=== PATIENT | male | born 1935 | race Caucasian/White ===

== ENCOUNTER 2018-02-08 20:09 | Emergency (ER) | payer BC, MEDICARE ==
[2018-02-08] MEDS ORDERED: Lidocaine 1% w/Epinephrine 1:100K 20 ML VIAL ONE (20:59)
== END 2018-02-08 22:36 | disposition home or self-care (01) ==
LOC: ERS 20:09
DX: S51.812A Laceration without foreign body of left forearm, initial encounter (principal); S61.411A Laceration without foreign body of right hand, initial encounter; J44.9 Chronic obstructive pulmonary disease, unspecified; Z87.891 Personal history of nicotine dependence; W19.XXXA Unspecified fall, initial encounter
CPT/HCPCS: 12002; J2001

== ENCOUNTER 2018-02-09 18:41 | Emergency (ER) | payer MEDICARE | END 2018-02-09 20:35 | disposition home or self-care (01) | LOC: ERS 18:41 | DX: S51.811A Laceration without foreign body of right forearm, initial encounter (principal); S51.012A Laceration without foreign body of left elbow, initial encounter; Z71.6 Tobacco abuse counseling; I25.10 Atherosclerotic heart disease of native coronary artery without angina pectoris; J44.9 Chronic obstructive pulmonary disease, unspecified; Z87.891 Personal history of nicotine dependence; Z79.82 Long term (current) use of aspirin; W19.XXXA Unspecified fall, initial encounter | CPT/HCPCS: 99406 ==

== ENCOUNTER 2018-04-04 18:51 | Emergency (ER) | payer MEDICARE | END 2018-04-04 20:06 | disposition home or self-care (01) | LOC: ERS 18:51 | DX: S51.812A Laceration without foreign body of left forearm, initial encounter (principal); S61.512A Laceration without foreign body of left wrist, initial encounter; I25.10 Atherosclerotic heart disease of native coronary artery without angina pectoris; J44.9 Chronic obstructive pulmonary disease, unspecified; Z87.891 Personal history of nicotine dependence; Z79.82 Long term (current) use of aspirin; W18.30XA Fall on same level, unspecified, initial encounter | CPT/HCPCS: 99282 ==

== ENCOUNTER 2019-04-13 09:31 | Inpatient (IN) | payer MEDICARE ==
[2019-04-13 10:24] LABS: #Lymphocytes 0.7 thou/uL (1.20-3.40); #Monocytes 0.4 thou/uL (0.11-0.59); #Neutrophils 8.4 thou/uL (1.40-6.50); %Basophils 0.2 % (0.0-1.0); %Eosinophils 0.2 % (0.0-10.0); %Lymphocytes 7.6 % (21.0-51.0); %Monocytes 3.9 % (0.0-10.0); %Neutrophils 88.1 % (42.0-75.0); Hemoglobin 10.1 g/dL (14.0-18.0); Mean Corpuscular HGB CONC 32.2 g/dL (32.0-36.0); Mean Corpuscular Hemoglobin 31.5 pg (27.0-31.0); Mean Corpuscular Volume 97.8 fL (78.0-98.0); Mean Platelet Volume 6.5 fL (7.4-10.4); Platelet Count 386 thou/uL (130-400); RBC Distribution Width 13.9 % (11.5-14.5); White Blood Cell (WBC) Count 9.5 thou/uL (4.8-10.8)
[2019-04-13 10:36] LABS: ALT (SGPT) 9 U/L (8-55); AST (SGOT) 15 U/L (5-34); Albumin 2.9 g/dL (3.4-4.8); Alkaline Phosphatase 57 U/L (40-110); Anion Gap 9 mmol/L (10-20); BUN (Urea Nitrogen) 26 mg/dL (8.4-25.7); Bilirubin, Total 0.4 mg/dL (0.2-1.2); Calc. Creatinine Clearance 0 mL/min (70-130); Calcium 8.7 mg/dL (7.8-10.44); Carbon Dioxide 29 mmol/L (23-31); Chloride 99 mmol/L (98-107); Estimated GFR-MDRD 69; Globulin 4.2 g/dL (2.4-3.5); Glucose 117 mg/dL (83-110); Lipase 49 U/L (8-78); Potassium 4.2 mmol/L (3.5-5.1); Protein, Total 7.1 g/dL (5.8-8.1); Sodium 133 mmol/L (136-145)
--- NOTE | 2019-04-13 10:37 | RAD ---
Chest AP view INDICATION: Acute onset of chest pain COMPARISON: None FINDINGS: Lungs:There is increased airspace opacity within the left lower lobe suspicious for pneumonia. This i s superimposed on severe COPD change. Cardiac silhouette:Mild cardiomegaly and post-CABG change Pulmonary vasculature:Normal Pleural spaces:No pleural effusion or pneumothorax is demonstrated. Upper abdomen:No abnormality seen. Osseous structures: No acute osseous abnormality. There is scattered degenerative and osteoarthritic change present. Additional findings:None. IMPRESSION: Interstitial and airspace opacity in the left lower lobe suspicious for pneumonia. Recomm end radiographic follow to resolution. Severe emphysema. Mild cardiomegaly without evidence of cardiac decompensation.
[2019-04-13] MEDS ORDERED: Piperacillin/Tazobactam 3.375 GM VIAL ONE (11:03)
[2019-04-13] MEDS ORDERED: Vancomycin HCl 750 MG in Sodium Chloride 0.9% 250 ML 250 ML IVPB SCH (11:45)
[2019-04-13] MEDS ORDERED: Ondansetron PF 4 MG/2 ML Vial IVP PRN (14:30)
[2019-04-13] MEDS ORDERED: Acetaminophen 325 MG TAB PO PRN (14:30)
[2019-04-13] MEDS ORDERED: Sodium Chloride 0.9% 1,000 ML IV SCH (14:30)
[2019-04-13] MEDS ORDERED: Ondansetron ODT 4 MG TAB SL PRN (14:30)
[2019-04-13] MEDS ORDERED: Piperacillin/Tazobactam 3.375 GM in Sodium Chloride 0.9% 100 ML IVPB SCH (18:00)
[2019-04-13] MEDS: Dextrose 5 %-0.45 % NaCl 1,000 ML IV SCH (20:41)
[2019-04-13] MEDS: Piperacillin/Tazobactam 3.375 GM in Sodium Chloride 0.9% 100 ML IVPB SCH (20:42)
[2019-04-13] MEDS: Rosuvastatin 20 MG TAB PO SCH (20:47)
[2019-04-13] MEDS: Ipratropium Bromide 2.5 ml Neb NEB SCH (23:29)
[2019-04-14] MEDS: Acetaminophen 325 MG TAB PO PRN (01:39)
[2019-04-14] MEDS: Piperacillin/Tazobactam 3.375 GM in Sodium Chloride 0.9% 100 ML IVPB SCH ×4 (01:39→20:31)
--- NOTE | 2019-04-14 01:59 | HP ---
CHIEF COMPLAINT: Left lower lobe pneumonia. HISTORY OF PRESENT ILLNESS: The patient is an 83-year-old male who was in his usual state of health being recently short winded, but awoke on the morning of admission vomiting and then after that he broke into a sweat and had chest pain, so that he came to the emergency room for further evaluation. The chest pain had almost resolved by the time he had come to the hospital. He denied radiation of pain, shortness of breath. The pain did improve with aspirin and nitroglycerin that was given to him by EMS. He denied palpitations, diaphoresis. He does have a history of coronary artery disease. His main symptoms of discomfort were midepigastric. The patient did have a cough over the last couple days. The patient's chest pain was magnified with deep breathing and with palpation of the chest. In the emergency room, he was noted to have left lower lobe pneumonia. PATIENT'S PAST MEDICAL HISTORY: Noteworthy for coronary artery disease, COPD, GERD, hypothyroidism, hyperlipidemia, anxiety with some depression. PAST SURGICAL HISTORY: Includes coronary artery bypass graft x3 vessels and that was in 2007, replacement of cardiac valve as well. PSYCHIATRIC HISTORY: No prior psychiatric history. SOCIAL HISTORY: He quit smoking approximately 10 years ago. Lives at home alone. Denies alcohol use. ALLERGIES: HE DENIES ANY NO KNOWN ALLERGIES. CURRENT MEDICATIONS: Include: 1. Rosuvastatin 20 mg at bedtime. 2. Budesonide enteric-coated 3 mg that is inhaled t.i.d. 3. Spiriva 18 mcg daily. 4. Sertraline 100 mg daily. 5. Levothyroxine 75 mcg daily. 6. Takes 81 mg of aspirin daily. 7. Folic acid 1 mg p.o. daily. 8. Symbicort 160/4.5 two puffs b.i.d. 9. Protonix 40 mg daily. REVIEW OF SYSTEMS: CONSTITUTIONAL: The patient constitutionally denies, chills , fever but admits to nausea, vomiting, and recent cough and shortness of breath. HEENT: No sores or lesions in ears nose or throat. CHEST: With noted shortness and breath and cough, it is chronic. CARDIOVASCULAR: Had some chest pain that was reproduced by palpation and inspiration. GASTROINTESTINAL: He has had nausea with vomiting on the morning of admission. Denies diarrhea. GENITOURINARY: Denies blood in urine or stool or dysuria. MUSCULOSKELETAL: Has had significant weight loss and muscle wasting in all extremities. Over the last several months, unable to put weight on. SKIN: No new rashes or lesions. NEUROLOGIC: No headaches, hallucinations, or trouble with mentation. ENDOCRINE: No new areas of swelling or heat. PHYSICAL EXAMINATION: VITAL SIGNS: At the time of admission vital signs 110/49, pulse 62, respirations 16, pain scale 6/10, O2 saturation 89% on 4 L of oxygen. GENERAL: This is a severely cachectic, malnourished male, alert, oriented, cooperative. HEENT: The patient has temporal wasting. It is atraumatic, sunken eyes. Pupils are equal, round, and reactive to light. Extraocular muscles are intact. TMs, nares, and pharynx are clear. NECK: Supple. Trachea midline. CHEST: With diminished breath sounds throughout. Faint rales in the left lower lobe. HEART: Regular rate and rhythm without murmur. ABDOMEN: Scaphoid. Unable to appreciate organomegaly. : Deferred. EXTREMITIES: Without clubbing, cyanosis, or edema and muscular wasting severely in upper and lower extremities. SKIN: It is just hanging on him with poor turgor throughout. NEUROLOGIC: Cranial nerves are intact. Unable to test gait and cerebellar function at this time. Sensory exam is grossly intact. Mental status appears baseline and nonfocal with clear coherent conversation and thought pattern. LABORATORY DATA: Lab work thus far, chest x-ray shows left lower lobe infiltrate. Sodium 133, potassium 4.2, chloride 99, CO2 29, BUN 26, creatinine 1.03, GFR is 69, glucose 117, lactic acid at 1, calcium 8.7. Liver functions normal. Troponin negative. BNP slightly elevated at 151, lipase 49. Albumins are all low. WBCs 9.5, hemoglobin 10.1, hematocrit 31.3 with platelet at 386. ASSESSMENT: 1. Left lower lobe pneumonia with symptoms of pleurisy. 2. History of coronary artery disease. 3. Severe malnourishment. 4. Severe chronic obstructive pulmonary disease. 5. Adult Failure to thrive. PLAN: Plan will be IV antibiotics. Nutritional consult for supplements and supportive care toward regaining weight and serially re-evaluate him. Job ID: [id number] [facility]
[2019-04-14 05:02] LABS: #Lymphocytes 0.9 thou/uL (1.20-3.40); #Monocytes 0.4 thou/uL (0.11-0.59); %Eosinophils 0.4 % (0.0-10.0); %Lymphocytes 12.3 % (21.0-51.0); %Monocytes 5.4 % (0.0-10.0); %Neutrophils 81.8 % (42.0-75.0); Hemoglobin 8.3 g/dL (14.0-18.0); Mean Corpuscular HGB CONC 32.8 g/dL (32.0-36.0); Mean Corpuscular Hemoglobin 31.9 pg (27.0-31.0); Mean Corpuscular Volume 97.5 fL (78.0-98.0); Mean Platelet Volume 6.6 fL (7.4-10.4); Platelet Count 294 thou/uL (130-400); RBC Distribution Width 13.9 % (11.5-14.5); Red Blood Cell (RBC) Count 2.59 mill/uL (4.70-6.10); White Blood Cell (WBC) Count 7.3 thou/uL (4.8-10.8)
[2019-04-14 05:13] LABS: Anion Gap 8 mmol/L (10-20); BUN (Urea Nitrogen) 19 mg/dL (8.4-25.7); Calc. Creatinine Clearance 42 mL/min (70-130); Calcium 7.7 mg/dL (7.8-10.44); Carbon Dioxide 26 mmol/L (23-31); Cardiac Risk 3.9 (Less than 4.5); Chloride 103 mmol/L (98-107); Cholesterol 108 mg/dl (< 200 Desired); Estimated GFR-MDRD 72; Glucose 97 mg/dL (83-110); HDL Cholesterol 28 mg/dL (>60 Neg Risk); LDL Cholesterol, Calculated 68 mg/dL; Potassium 4.2 mmol/L (3.5-5.1); Sodium 133 mmol/L (136-145); Triglycerides 61 mg/dL (Less than 150)
[2019-04-14] MEDS ORDERED: Levothyroxine Sodium 75 MCG TAB PO SCH (06:00)
[2019-04-14] MEDS: Ipratropium Bromide 2.5 ml Neb NEB SCH ×3 (06:45→19:35)
[2019-04-14] MEDS: Mometasone/Formoterol 120 PUFF INHALER INH SCH ×2 (06:48→19:37)
[2019-04-14] MEDS: Dextrose 5 %-0.45 % NaCl 1,000 ML IV SCH ×2 (09:03→22:15)
[2019-04-14] MEDS: Aspirin Chewable 81 MG TAB PO SCH (09:04)
[2019-04-14] MEDS: Folic Acid 1 MG TAB PO SCH (09:04)
--- NOTE | 2019-04-14 09:25 | PQF ---
MARTINA AUSTIN MICHAEL E MD [id number] CLINICAL DOCUMENTATION IMPROVEMENT CLARIFICATION FORM: ICD-10 Updated PLEASE DO AN ADDENDUM TO THE PROGRESS NOTE WITH ANY DOCUMENTATION UPDATES OR ADDITIONS AND CARRY THROUGH TO DC SUMMARY. THANK YOU. Date: 04/14/19 ATTN: Dr. Slade Please exercise your independent, professional judgment in responding to the clarification form. Clinical indicators are provided on the bottom of this form for your review Please check appropriate box(s): [ ] Protein Calorie Malnutrition: [ ] Mild [ ] Moderate [ ] Severe [ ] Other Malnutrition (please specify) __ [ x ] Underweight without malnutrition [ ] Other diagnosis [ ] Unable to determine In addition, please specify: Present on Admission (POA): [ x ] Yes [ ] No [ ] Unable to determine CLINICAL INDICATORS - SIGNS / SYMPTOMS / LABS / RESULTS AND LOCATION IN MR 04/14 H&P([place]):"Severe Malnourishment". "Cachetic. Temporal wasting, sunken eyes, muscular wasting severely in upper and lower extremities" BMI of 16.7 per [facility] Two or More of the Followin/22 RD([place]): "patient report of eating 3 meals/day with limited diet recall, suspect patient consuming <1200 kcal day meeting <75% of estimated energy needs for >1 month, severe muscle wasting, and severe fat loss suggestive of severe malnutrition in the context of chronic illness" RISK FACTORS / RESULTS AND LOCATION IN MR Chronic illness "COPD, CAD per history; now with LLL pneumonia with symptoms of pleurisy" 04/14 H&P([place]) TREATMENT / RESULTS AND LOCATION IN MR Dietary consult 04/13 orders Nutritional supplements--> Ensure Enlive BID 04/14 orders Calorie count 04/14 orders Moderate Malnutrition (in acute illness) Energy Intake: <75% of estimated energy requirement for > 7 days Weight Loss: 1-2%/1 week; 5%/ 1 month; 7.5%/3 months Other: mild body fat loss; mild muscle mass loss; mild fluid accumulation; Severe Malnutrition (in acute illness) Energy Intake: < 50% of estimated energy requirement for > 5 days Weight Loss: >1-2%/1 week; >5%/1 month; >7.5%/3 months Other: moderate body fat loss; moderate muscle mass loss; moderate- severe fluid accumulation; 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 Moderate Malnutrition (in chronic illness) Energy Intake: <75% of estimated energy requirement for >1 month Weight Loss: 5%/1 month; 7.5%/3 months; 10%/6 months; 20%/1 year Other: mild body fat loss; mild muscle mass loss; mild fluid accumulation Severe Malnutrition (in chronic illness) Energy Intake: <75% of estimated energy requirement for >1 month Weight Loss: >5%/1 month; >7.5%/3 months; >10%/6 months; >20%/1 year Other: severe body fat loss; severe muscle mass loss; severe fluid accumulation ; 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 All Rights Reserved Margaret Toscano RN, BSN, CCDS [email or web address] MTDD
--- NOTE | 2019-04-14 09:34 | RAD ---
PA AND LATERAL VIEWS CHEST: Date: 04/14/19 HISTORY: Pneumonia. FINDINGS: Comparison made with exam from previous day. FINDINGS/IMPRESSION: Changes of median sternotomy again seen. Heart size normal. Aorta tortuous. Chronic changes are again seen. Interstitial and air space opacity in the left lower lobe suspicious for pneumonia is again no david. No pneumothoraces or pleural effusions are seen. There are degenerative changes in the spine. POS: TPC
--- NOTE | 2019-04-14 09:51 | PQF ---
MARTINA AUSTIN MICHAEL E MD [id number] CLINICAL DOCUMENTATION IMPROVEMENT CLARIFICATION FORM: ICD-10 Updated PLEASE DO AN ADDENDUM TO THE PROGRESS NOTE WITH ANY DOCUMENTATION UPDATES OR ADDITIONS AND CARRY THROUGH TO DC SUMMARY. THANK YOU. DATE: 04/14/19 ATTN: Dr. Slade Please exercise your independent, professional judgment in responding to the clarification form. Clinical indicators are provided on the bottom of this form for your review Please check appropriate box(s): [ ] Hyponatremia please specify etiology, if known [ ] Hyponatremia due to SIADH (Syndrome of Inappropriate Secretion of Antidiuretic Hormone) [ ] Other diagnosis [ x ] Unable to determine In addition, please specify: Present on Admission (POA): [ x ] Yes [ ] No [ ] Unable to determine CLINICAL INDICATORS - SIGNS / SYMPTOMS / LABS / RESULTS AND LOCATION IN EMR Na level 133 04/13 and 04/14 per lab RISK FACTORS / RESULTS AND LOCATION IN EMR Dehydration--> "vomiting this morning" per ED([facility]) 04/13 TREATMENTS / RESULTS AND LOCATION IN EMR IV fluids--> 1 liter NS bolus in ED 04/13 to NS at 75 04/13 [id number] then D5 1/ 2 NS at 75 04/13 to date per orders Daily electrolyte labs 04/13 per lab (This form is maintained as a part of the permanent medical record) 2014 [employer] All Rights Reserved Margaret Toscano RN, BSN, CCDS [email or web address] [phone] MTDD
[2019-04-14] MEDS: Vancomycin HCl 750 MG in Sodium Chloride 0.9% 250 ML 250 ML IVPB SCH (11:46)
[2019-04-14] MEDS: Rosuvastatin 20 MG TAB PO SCH (20:32)
[2019-04-15] MEDS: Ipratropium Bromide 2.5 ml Neb NEB SCH ×5 (00:05→23:21)
[2019-04-15] MEDS: Piperacillin/Tazobactam 3.375 GM in Sodium Chloride 0.9% 100 ML IVPB SCH ×4 (02:20→20:21)
[2019-04-15] MEDS: Dextrose 5 %-0.45 % NaCl 1,000 ML IV SCH ×2 (03:24→08:37)
[2019-04-15] MEDS: Levothyroxine Sodium 100 MCG TAB PO SCH (05:29)
[2019-04-15] MEDS: Mometasone/Formoterol 120 PUFF INHALER INH SCH ×2 (06:49→18:44)
[2019-04-15] MEDS: Folic Acid 1 MG TAB PO SCH (08:29)
[2019-04-15] MEDS: Aspirin Chewable 81 MG TAB PO SCH (08:30)
[2019-04-15 11:56] LABS: Vancomycin, Trough 7.2 ug/mL
[2019-04-15] MEDS: Vancomycin HCl 1.25 GM in Sodium Chloride 0.9% 250 ML 250 ML IVPB SCH (14:56)
[2019-04-15] MEDS: Vancomycin HCl 750 MG in Sodium Chloride 0.9% 250 ML 250 ML IVPB SCH (19:53)
[2019-04-15] MEDS: Rosuvastatin 20 MG TAB PO SCH (20:20)
[2019-04-15] MEDS: Acetaminophen 325 MG TAB PO PRN (20:22)
[2019-04-16] MEDS: Piperacillin/Tazobactam 3.375 GM in Sodium Chloride 0.9% 100 ML IVPB SCH ×4 (02:16→20:16)
[2019-04-16] MEDS: Levothyroxine Sodium 100 MCG TAB PO SCH (05:18)
[2019-04-16 05:43] LABS: #Monocytes 0.4 thou/uL (0.11-0.59); #Neutrophils 6.1 thou/uL (1.40-6.50); %Eosinophils 0.3 % (0.0-10.0); %Lymphocytes 13.8 % (21.0-51.0); %Monocytes 5.4 % (0.0-10.0); %Neutrophils 80.5 % (42.0-75.0); Hemoglobin 9.7 g/dL (14.0-18.0); Mean Corpuscular HGB CONC 32.9 g/dL (32.0-36.0); Mean Corpuscular Hemoglobin 31.8 pg (27.0-31.0); Mean Corpuscular Volume 96.8 fL (78.0-98.0); Mean Platelet Volume 6.6 fL (7.4-10.4); Platelet Count 274 thou/uL (130-400); RBC Distribution Width 14.1 % (11.5-14.5); Red Blood Cell (RBC) Count 3.03 mill/uL (4.70-6.10); White Blood Cell (WBC) Count 7.5 thou/uL (4.8-10.8)
[2019-04-16 06:03] LABS: Anion Gap 8 mmol/L (10-20); BUN (Urea Nitrogen) 11 mg/dL (8.4-25.7); Calc. Creatinine Clearance 43 mL/min (70-130); Calcium 8.4 mg/dL (7.8-10.44); Carbon Dioxide 30 mmol/L (23-31); Chloride 100 mmol/L (98-107); Estimated GFR-MDRD 83; Glucose 89 mg/dL (83-110); Potassium 4.5 mmol/L (3.5-5.1); Sodium 133 mmol/L (136-145)
[2019-04-16] MEDS: Ipratropium Bromide 2.5 ml Neb NEB SCH ×3 (08:28→19:19)
[2019-04-16] MEDS: Mometasone/Formoterol 120 PUFF INHALER INH SCH ×2 (08:38→19:19)
[2019-04-16] MEDS: Aspirin Chewable 81 MG TAB PO SCH (09:59)
[2019-04-16] MEDS: Folic Acid 1 MG TAB PO SCH (09:59)
[2019-04-16] MEDS ORDERED: Budesonide 0.5 MG/2 ML NEB NEB SCH (11:00)
--- NOTE | 2019-04-16 11:46 | RAD ---
2 view chest: [04/16/2019] Comparison:04/14/2019 HISTORY: Possible pneumonia FINDINGS: Increased linear interstitial density noted with pulmonary hyperinflation consistent with a ir trapping. Midline sternotomy wires are present. Asymmetric increased linear densities noted in the medial left base and the left costophrenic angle r egion with probable small volume pleural fluid and/or pleural scar. No focal consolidation or alveolar edema. IMPRESSION: Findings suggesting COPD. Asymmetric increased linear density in the left base may signif y left basilar infectious pneumonitis. No focal consolidation. Follow-up imaging following treatment suggested.
[2019-04-16] MEDS: Vancomycin HCl 1.25 GM in Sodium Chloride 0.9% 250 ML 250 ML IVPB SCH (11:55)
[2019-04-16] MEDS: Budesonide 0.5 MG/2 ML NEB NEB SCH (19:18)
[2019-04-16] MEDS: Rosuvastatin 20 MG TAB PO SCH (20:17)
[2019-04-16] MEDS: Acetaminophen 325 MG TAB PO PRN (23:03)
[2019-04-17] MEDS: Ipratropium Bromide 2.5 ml Neb NEB SCH ×5 (00:52→23:12)
[2019-04-17] MEDS: Piperacillin/Tazobactam 3.375 GM in Sodium Chloride 0.9% 100 ML IVPB SCH ×4 (02:42→19:43)
[2019-04-17] MEDS: Levothyroxine Sodium 100 MCG TAB PO SCH (05:27)
[2019-04-17 06:59] LABS: INR-International Normal Ratio 1.2; Prothrombin Time 14.7 SEC (12.0-14.7)
[2019-04-17] MEDS: Mometasone/Formoterol 120 PUFF INHALER INH SCH ×2 (07:22→18:48)
[2019-04-17] MEDS: Budesonide 0.5 MG/2 ML NEB NEB SCH ×2 (07:25→18:48)
[2019-04-17] MEDS: Aspirin Chewable 81 MG TAB PO SCH (07:43)
[2019-04-17] MEDS: Folic Acid 1 MG TAB PO SCH (07:44)
[2019-04-17] MEDS ORDERED: [UNRECOGNIZED DRUG - OTHER] IVPB PRN (08:48)
--- NOTE | 2019-04-17 09:07 | RAD ---
XR Chest Pa Lat STANDARD History: Aspiration Comparison: Radiograph prior day Findings: The lungs are hyperinflated. Left basilar opacity. No pneumothorax. No significant effusion . Scarring the lung bases. Impression: Similar appearance of the left basilar consolidation concerning for infection.
[2019-04-17 11:42] LABS: Vancomycin, Trough 11.9 ug/mL
[2019-04-17] MEDS: Vancomycin HCl 1.25 GM in Sodium Chloride 0.9% 250 ML 250 ML IVPB SCH (12:52)
--- NOTE | 2019-04-17 15:46 | SPC ---
Sonographic guided left upper extremity HISTORY: Infection. Need for long-term antibiotics. FINDINGS: After explaining the procedure and answering all questions, left upper extremity was preppe d and draped in usual sterile fashion. Sterile technique, buffered local anesthesia, sonographic guidance, and a 22-gauge needle were used to carefully access the left brachial vein. Standard techni que was used to place the tip of a 5 [place] single lumen PICC so that the tip lies at the level of the cavoatrial junction. Catheter was flushed and secured externally. Patient tolerated the procedure well and was returned in unchanged condition. Fluoroscopy time 0.6 minutes. IMPRESSION: Left upper extremity PICC is ready for use.
--- NOTE | 2019-04-17 16:34 | RAD ---
Modified barium swallow HISTORY: Pneumonia. Aspiration. Dysphagia. Feeding difficulties. FINDINGS: Exam was performed in conjunction with speech pathology with multiple consistencies. Video review is available and demonstrates poor bolus formation with early spill of contrast. Aspiration was demonstrated on the first symptoms of the barium liquid. There was spontaneous coughing by the pa tient, but incomplete clearing of the aspirate. Extensive pooling within the valleculae with limited clearance upon secondary swallowing. The esophagus below the level of the hypopharynx was not evaluated. Fluoroscopy time 0.8 minutes. Please see separate detailed report the speech pathology department.
[2019-04-17] MEDS: Rosuvastatin 20 MG TAB PO SCH (19:44)
[2019-04-18] MEDS: Acetaminophen 325 MG TAB PO PRN (00:52)
[2019-04-18] MEDS: Piperacillin/Tazobactam 3.375 GM in Sodium Chloride 0.9% 100 ML IVPB SCH ×4 (02:30→20:13)
[2019-04-18] MEDS: Levothyroxine Sodium 100 MCG TAB PO SCH (05:01)
[2019-04-18 05:44] LABS: #Lymphocytes 1.1 thou/uL (1.20-3.40); #Monocytes 0.3 thou/uL (0.11-0.59); #Neutrophils 3.7 thou/uL (1.40-6.50); %Basophils 0.2 % (0.0-1.0); %Eosinophils 0.9 % (0.0-10.0); %Lymphocytes 21.1 % (21.0-51.0); %Monocytes 6.5 % (0.0-10.0); %Neutrophils 71.3 % (42.0-75.0); Hemoglobin 8.9 g/dL (14.0-18.0); Mean Corpuscular HGB CONC 32.6 g/dL (32.0-36.0); Mean Corpuscular Hemoglobin 31.6 pg (27.0-31.0); Mean Corpuscular Volume 97.1 fL (78.0-98.0); Mean Platelet Volume 6.8 fL (7.4-10.4); Platelet Count 241 thou/uL (130-400); RBC Distribution Width 14.3 % (11.5-14.5); Red Blood Cell (RBC) Count 2.83 mill/uL (4.70-6.10); White Blood Cell (WBC) Count 5.2 thou/uL (4.8-10.8)
[2019-04-18] MEDS: Mometasone/Formoterol 120 PUFF INHALER INH SCH ×2 (07:06→18:51)
[2019-04-18] MEDS: Budesonide 0.5 MG/2 ML NEB NEB SCH ×2 (07:07→18:50)
[2019-04-18] MEDS: Ipratropium Bromide 2.5 ml Neb NEB SCH ×3 (07:09→18:51)
[2019-04-18] MEDS: Folic Acid 1 MG TAB PO SCH (07:47)
[2019-04-18] MEDS: Aspirin Chewable 81 MG TAB PO SCH (07:47)
[2019-04-18] MEDS: Vancomycin HCl 1.25 GM in Sodium Chloride 0.9% 250 ML 250 ML IVPB SCH (11:54)
[2019-04-18] MEDS: Rosuvastatin 20 MG TAB PO SCH (20:13)
[2019-04-19] MEDS: Ipratropium Bromide 2.5 ml Neb NEB SCH ×4 (00:17→19:52)
[2019-04-19] MEDS: Piperacillin/Tazobactam 3.375 GM in Sodium Chloride 0.9% 100 ML IVPB SCH ×4 (02:18→20:30)
[2019-04-19] MEDS: Levothyroxine Sodium 100 MCG TAB PO SCH (05:43)
[2019-04-19] MEDS: Budesonide 0.5 MG/2 ML NEB NEB SCH ×2 (06:22→19:10)
[2019-04-19] MEDS: Mometasone/Formoterol 120 PUFF INHALER INH SCH ×2 (06:25→19:50)
[2019-04-19 12:11] LABS: Vancomycin, Trough 11.8 ug/mL
[2019-04-19 12:15] VITALS: BMI 15.3
[2019-04-19] MEDS: Folic Acid 1 MG TAB PO SCH (12:30)
[2019-04-19] MEDS: Dextrose 5 % And 0.9 % NaCl 1,000 ML IV SCH ×3 (12:30→20:30)
[2019-04-19] MEDS: Aspirin Chewable 81 MG TAB PO SCH (12:38)
[2019-04-19] MEDS: Vancomycin HCl 1.25 GM in Sodium Chloride 0.9% 250 ML 250 ML IVPB SCH (12:45)
[2019-04-19] MEDS: Rosuvastatin 20 MG TAB PO SCH (20:28)
[2019-04-19] MEDS: Acetaminophen 325 MG TAB PO PRN (20:30)
[2019-04-20] MEDS: Ipratropium Bromide 2.5 ml Neb NEB SCH ×4 (00:19→19:13)
[2019-04-20] MEDS: Piperacillin/Tazobactam 3.375 GM in Sodium Chloride 0.9% 100 ML IVPB SCH ×4 (01:48→20:06)
[2019-04-20] MEDS: Levothyroxine Sodium 100 MCG TAB PO SCH (05:12)
[2019-04-20 05:29] LABS: #Eosinphils 0.1 thou/uL (0.0-0.7); #Lymphocytes 1.1 thou/uL (1.20-3.40); #Monocytes 0.5 thou/uL (0.11-0.59); #Neutrophils 2.6 thou/uL (1.40-6.50); %Basophils 0.5 % (0.0-1.0); %Eosinophils 2.9 % (0.0-10.0); %Lymphocytes 24.6 % (21.0-51.0); %Monocytes 11.5 % (0.0-10.0); %Neutrophils 60.5 % (42.0-75.0); Hemoglobin 9.1 g/dL (14.0-18.0); Mean Corpuscular HGB CONC 31.5 g/dL (32.0-36.0); Mean Corpuscular Hemoglobin 30.5 pg (27.0-31.0); Mean Corpuscular Volume 96.9 fL (78.0-98.0); Platelet Count 206 thou/uL (130-400); RBC Distribution Width 14.1 % (11.5-14.5); Red Blood Cell (RBC) Count 2.98 mill/uL (4.70-6.10); White Blood Cell (WBC) Count 4.4 thou/uL (4.8-10.8)
[2019-04-20 05:52] LABS: Anion Gap 6 mmol/L (10-20); BUN (Urea Nitrogen) 18 mg/dL (8.4-25.7); Calc. Creatinine Clearance 52 mL/min (70-130); Calcium 7.7 mg/dL (7.8-10.44); Carbon Dioxide 29 mmol/L (23-31); Chloride 105 mmol/L (98-107); Estimated GFR-MDRD Greater than 90; Glucose 111 mg/dL (83-110); Iron Binding Capacity, Total 184 mcg/dL (261-462); Potassium 3.6 mmol/L (3.5-5.1); Sodium 136 mmol/L (136-145)
[2019-04-20 06:18] LABS: Ferritin 196.77 ng/mL (22-322)
[2019-04-20] MEDS: Budesonide 0.5 MG/2 ML NEB NEB SCH ×2 (06:52→19:13)
[2019-04-20] MEDS: Mometasone/Formoterol 120 PUFF INHALER INH SCH ×2 (06:54→19:13)
[2019-04-20] MEDS: Aspirin Chewable 81 MG TAB PO SCH (07:56)
[2019-04-20] MEDS: Acetaminophen 325 MG TAB PO PRN ×2 (09:13→22:26)
[2019-04-20] MEDS: Folic Acid 1 MG TAB PO SCH (09:14)
[2019-04-20] MEDS: Dextrose 5 % And 0.9 % NaCl 1,000 ML IV SCH ×2 (09:16→16:04)
--- NOTE | 2019-04-20 11:52 | PRG ---
DATE OF SERVICE: 04/20/2019 SUBJECTIVE: Mr. Henderson is resting comfortably, sleeping. He had no events overnight. His nurse, Rigoberto, tells me that the patient and his son have decided not to proceed with the PEG tube. OBJECTIVE: VITAL SIGNS: Temperature 97, pulse 70, blood pressure 140/60. GENERAL: The patient is frail. He is resting comfortably in bed. He had some slight crackles and rhonchi at his bases. ABDOMEN: Nontender. LABORATORY DATA: White count is 4.4, hemoglobin is 9.1, platelet count is 206. Sodium 136, potassium 3.6, BUN and creatinine are 18 and 0.7, calcium 7.7. ASSESSMENT AND PLAN: 1. Cachexia. 2. Oropharyngeal dysphagia. The patient and son have decided to not have a PEG tube placed as he says he is probably going to continue to eat. We did discuss options of comfort. He is in PEG tube for nutrition as he is very thin and frail and has muscle wasting, but he is not interested in that. At this time, we will sign off, but if he changes his mind or the son changes his mind, I would be happy to come back and see them over the weekend. Job ID: [id number]
--- NOTE | 2019-04-20 12:01 | CON ---
DATE OF CONSULTATION: REASON FOR CONSULTATION: Possible PEG placement, history of anemia, heme-positive stool. HISTORY OF PRESENT ILLNESS: Mr. Henderson is an 83-year-old gentleman with severe hard of hearing, who was admitted to the hospital on 04/13/2019 for left lower lobe pneumonia. Apparently, he had been having increasing shortness of breath, coughing, and vomiting and on the day of admission, he had sweats and chest pain. He came to the emergency room. He also had some epigastric discomfort. Apparently at that time, he was noted to have left lower lobe pneumonia on x-rays on admission. He ruled out for an MN. Evaluation at bedtime was concerning for aspiration. He had a modified barium swallow done on that was concerning for gross aspiration. Speech pathologist talked about possible PEG tube placement. The patient, however, states that he likes to eat. He is going to continue to eat. The son and daughter and they were trying to decide what to do. Of note, he has had a lot of weight loss for the past several months, but cannot quantify how much, but it has been a lot. He has a small to hard time eating and takes about an hour to eat a very small amount of food. He reports that he was found to be anemic last year at the [facility] and had upper and lower endoscopies that were nondiagnostic at that time. PAST MEDICAL HISTORY: Notable for emphysema, coronary artery disease, reflux, hypothyroidism, hyperlipidemia, anxiety, and depression. PAST SURGICAL HISTORY: Coronary artery bypass grafting x3, in 2008 replacement of valve as well. SOCIAL HISTORY: Stopped smoking about 10 years ago. Does not drink. Daughter and son as well as grandchildren at the bedside. ALLERGIES: NONE KNOWN. MEDICATIONS: At home: 1. Rosuvastatin. 2. Budesonide. 3. Spiriva. 4. Sertraline. 5. Levothyroxine. 6. 81 mg of aspirin. 7. Folic acid. 8. Symbicort. 9. Protonix. PHYSICAL EXAMINATION: GENERAL: He is resting in bed. He is cachectic and thin. He is very hard of hearing . He seems to be pleasant and he seems to be alert. VITAL SIGNS: His temperature is 97.5, his pulse is 63, and blood pressure is 132/61. LUNGS: Notable for rhonchi and slight crackles at the bases. CHEST: 2/6 systolic ejection murmur. ABDOMEN: Soft and nontender with no palpable hepatosplenomegaly. EXTREMITIES: No clubbing, cyanosis, or edema. There is gross muscle wasting throughout. He has bitemporal wasting and muscle wasting in the trunk and extremities. LABORATORY DATA: White count 5.2 on the 26th, hemoglobin 8.9, platelet count 241. Sodium 133, potassium 4.5, BUN and creatinine are , albumin is 2.9, protein 7.1. Liver function tests otherwise normal. Lipase is 49. TSH 4.24. ASSESSMENT: Severe oropharyngeal dysphagia of unclear etiology. He reports he had upper and lower endoscopies last year at [facility]. At the [facility], we will try to get those records. There is no acute bleeding. He has normocytic normochromic anemia. He is reportedly heme-positive With regard to his oropharyngeal dysphagia, he has not decided if he wants to have a PEG tube. He met with palliative care today. he could have a feeding tube for most of his feedings and then do some comfort feedings, although he may still be at some risk of aspiration. He is not sure if he wants to do that or not. I did discuss the risks, benefits, and possible complications of procedure with the patient and family. The risks of these are very small including infection, injury to the intraabdominal organs, bleeding, or anesthetic complications. However, I did note that with his severe malnutrition and chronic obstructive pulmonary disease that if he would have a complication, that would require any kind of surgical repair that could be a fatal complication. They understand this and they are going to think about things and I will check back from tomorrow. Job ID: [id number]
[2019-04-20] MEDS: Vancomycin HCl 1.25 GM in Sodium Chloride 0.9% 250 ML 250 ML IVPB SCH (12:18)
[2019-04-20] MEDS: Rosuvastatin 20 MG TAB PO SCH (20:06)
[2019-04-21] MEDS: Ipratropium Bromide 2.5 ml Neb NEB SCH ×4 (00:07→18:45)
[2019-04-21] MEDS: Piperacillin/Tazobactam 3.375 GM in Sodium Chloride 0.9% 100 ML IVPB SCH ×4 (02:35→20:21)
[2019-04-21] MEDS: Dextrose 5 % And 0.9 % NaCl 1,000 ML IV SCH ×3 (03:53→18:26)
[2019-04-21] MEDS: Levothyroxine Sodium 100 MCG TAB PO SCH (06:10)
[2019-04-21] MEDS: Mometasone/Formoterol 120 PUFF INHALER INH SCH ×2 (06:23→18:48)
[2019-04-21] MEDS: Budesonide 0.5 MG/2 ML NEB NEB SCH ×2 (06:26→18:48)
[2019-04-21] MEDS: Folic Acid 1 MG TAB PO SCH (07:59)
[2019-04-21] MEDS: Aspirin Chewable 81 MG TAB PO SCH (08:00)
[2019-04-21] MEDS: Vancomycin HCl 1.25 GM in Sodium Chloride 0.9% 250 ML 250 ML IVPB SCH (11:56)
[2019-04-21] MEDS: Rosuvastatin 20 MG TAB PO SCH (20:28)
[2019-04-22] MEDS: Ipratropium Bromide 2.5 ml Neb NEB SCH ×3 (00:01→13:46)
[2019-04-22] MEDS: Piperacillin/Tazobactam 3.375 GM in Sodium Chloride 0.9% 100 ML IVPB SCH ×4 (01:29→20:16)
[2019-04-22] MEDS: Levothyroxine Sodium 100 MCG TAB PO SCH (05:04)
[2019-04-22] MEDS: Mometasone/Formoterol 120 PUFF INHALER INH SCH (06:40)
[2019-04-22] MEDS: Budesonide 0.5 MG/2 ML NEB NEB SCH ×2 (06:45→18:34)
[2019-04-22] MEDS: Folic Acid 1 MG TAB PO SCH (08:19)
[2019-04-22] MEDS: Aspirin Chewable 81 MG TAB PO SCH (08:19)
[2019-04-22] MEDS: Vancomycin HCl 1.25 GM in Sodium Chloride 0.9% 250 ML 250 ML IVPB SCH (11:27)
[2019-04-22] MEDS ORDERED: Ipratropium Bromide 2.5 ml Neb NEB PRN (14:30)
[2019-04-22] MEDS: Rosuvastatin 20 MG TAB PO SCH (20:15)
[2019-04-22] MEDS: Megestrol Acetate 800 MG/20 ML UDCUP PO SCH (20:15)
[2019-04-23] MEDS: Piperacillin/Tazobactam 3.375 GM in Sodium Chloride 0.9% 100 ML IVPB SCH ×4 (02:35→19:59)
[2019-04-23] MEDS: Dextrose 5 % And 0.9 % NaCl 1,000 ML IV SCH ×2 (04:31→12:39)
[2019-04-23] MEDS: Levothyroxine Sodium 100 MCG TAB PO SCH (05:37)
[2019-04-23] MEDS: Budesonide 0.5 MG/2 ML NEB NEB SCH ×2 (07:10→18:46)
[2019-04-23] MEDS: Aspirin Chewable 81 MG TAB PO SCH (08:03)
[2019-04-23] MEDS: Megestrol Acetate 800 MG/20 ML UDCUP PO SCH ×2 (08:03→20:03)
[2019-04-23] MEDS: Folic Acid 1 MG TAB PO SCH (08:03)
[2019-04-23 11:40] LABS: Vancomycin, Trough 12.7 ug/mL
[2019-04-23] MEDS: Vancomycin HCl 1.25 GM in Sodium Chloride 0.9% 250 ML 250 ML IVPB SCH (12:40)
[2019-04-23] MEDS: Tamsulosin HCl 0.4 MG CAP PO SCH (18:24)
[2019-04-23] MEDS: Rosuvastatin 20 MG TAB PO SCH (20:04)
[2019-04-24] MEDS: Piperacillin/Tazobactam 3.375 GM in Sodium Chloride 0.9% 100 ML IVPB SCH ×2 (01:08→07:46)
[2019-04-24] MEDS: Levothyroxine Sodium 100 MCG TAB PO SCH (05:36)
[2019-04-24 05:53] LABS: #Basophils 0.1 thou/uL (0.0-0.2); #Lymphocytes 1.1 thou/uL (1.20-3.40); #Monocytes 0.4 thou/uL (0.11-0.59); #Neutrophils 4.9 thou/uL (1.40-6.50); %Basophils 0.9 % (0.0-1.0); %Eosinophils 0.1 % (0.0-10.0); %Lymphocytes 17.3 % (21.0-51.0); %Monocytes 5.5 % (0.0-10.0); %Neutrophils 76.1 % (42.0-75.0); Hemoglobin 9.5 g/dL (14.0-18.0); Mean Corpuscular Hemoglobin 32.7 pg (27.0-31.0); Mean Corpuscular Volume 96.2 fL (78.0-98.0); Mean Platelet Volume 6.8 fL (7.4-10.4); Platelet Count 194 thou/uL (130-400); RBC Distribution Width 14.8 % (11.5-14.5); Red Blood Cell (RBC) Count 2.89 mill/uL (4.70-6.10); White Blood Cell (WBC) Count 6.4 thou/uL (4.8-10.8)
[2019-04-24 06:12] LABS: Anion Gap 10 mmol/L (10-20); BUN (Urea Nitrogen) 16 mg/dL (8.4-25.7); Calc. Creatinine Clearance 53 mL/min (70-130); Calcium 8.3 mg/dL (7.8-10.44); Carbon Dioxide 24 mmol/L (23-31); Chloride 107 mmol/L (98-107); Estimated GFR-MDRD Greater than 90; Glucose 83 mg/dL (83-110); Potassium 4.2 mmol/L (3.5-5.1); Sodium 137 mmol/L (136-145)
[2019-04-24] MEDS: Budesonide 0.5 MG/2 ML NEB NEB SCH (07:09)
[2019-04-24 07:45] VITALS: BP 147/62; TEMP 97.7
[2019-04-24] MEDS: Tamsulosin HCl 0.4 MG CAP PO SCH (07:46)
[2019-04-24] MEDS: Megestrol Acetate 800 MG/20 ML UDCUP PO SCH (07:46)
[2019-04-24] MEDS: Aspirin Chewable 81 MG TAB PO SCH (07:47)
[2019-04-24] MEDS: Folic Acid 1 MG TAB PO SCH (07:47)
--- NOTE | 2019-04-25 03:31 | PQF ---
MARTINA AUSTIN MICHAEL E MD [id number] CLINICAL DOCUMENTATION CLARIFICATION FORM: POST DISCHARGE Addendum to original discharge summary date: ____ Late entry note date: __ DATE: 04/25/19 ATTN: Stefano Licona Please exercise your independent, professional judgment in responding to the clarification form. Clinical indicators are provided on the bottom of this form for your review Please check appropriate box(s): [ ] Aspiration Pneumonia [ ] Lobar Pneumonia [ ] Pneumonia secondary to (specify organism / underlying disease) [ x ] Simple Pneumonia (community acquired - nosocomial) [ ] Pneumonia of unknown etiology [ ] Other diagnosis [ ] Unable to determine In addition, please specify: Present on Admission (POA): [ x ] Yes [ ] No [ ] Unable to determine For continuity of documentation, please document condition throughout progress notes and discharge summary. Thank You. CLINICAL INDICATORS - SIGNS / SYMPTOMS / LABS H&P p1 04/13 Dr Slade awoke on the morning of admission vomiting and them after that he broke into a sweat and had chest pain H&P p1 04/13 Dr Slade He did have a cough over the last couple of days H&P p1 04/13 Dr Slade In the ER, he was noted to have left lower pneumonia H&P p2 04/13 Dr Slade Vital signs: BP 110/49, Pulse 62, resp 16, O2 sat 89% of 4L of oxygen H&P p2 04/13 Dr Slade Faint rales in left lower love H&P p2 04/13 Dr Slade Chest x-ray shows left lower lobe infiltrates GE consult p2 04/19 Oropharyngeal Dysphagia RISK FACTORS H&P p1 04/13 83-year-old male H&P p1 04/13 GERD H&P p3 04/13 Left lower lobe pneumonia H&P p3 04/13 Severe COPD TREATMENTS: Respiratory Panel 04/13 Oxygen of 4lpm via nasal cannula AUG 01 IV vancomycin AUG 01 IV Zosyn GE consult 04/19 Dawson Bourgeois (This form is maintained as a part of the permanent medical record) 2014 [employer]. All Rights Reserved [email or web address] [phone] MTDD
--- NOTE | 2019-04-25 03:32 | PQF ---
MARTINA AUSTIN MICHAEL E MD [id number] CLINICAL DOCUMENTATION CLARIFICATION FORM: POST DISCHARGE Addendum to original discharge summary date: ____ Late entry note date: __ DATE: 04/25/19 ATTN: Stefano Licona Please exercise your independent, professional judgment in responding to the clarification form. Clinical indicators are provided on the bottom of this form for your review Please check appropriate box(s): [ ] Acute Respiratory Failure: [ ] with Hypoxia[ ] with Hypercapnia [ x ] Acute On Chronic Respiratory Failure: [ ] with Hypoxia [ ] with Hypercapnia [ ] Acute Respiratory Failure due to: (etiology) [ ] ARDS (Acute Respiratory Distress Syndrome) [ ] Chronic Respiratory Failure only [ ] with Hypoxia [ ] with Hypercapnia [ ] Hypoxia [ x ] Other diagnosis ____COPD [ ] Unable to determine In addition, please specify: Present on Admission (POA): [ X ] Yes [ ] No [ ] Unable to determine For continuity of documentation, please document condition throughout progress notes and discharge summary. Thank You. CLINICAL INDICATORS - SIGNS / SYMPTOMS / LABS H&P p1 04/13 Dr Slade awoke on the morning of admission vomiting and them after that he broke into a sweat and had chest pain H&P p1 04/13 Dr Slade He did have a cough over the last couple of days H&P p1 04/13 Dr Slade In the ER, he was noted to have left lower pneumonia H&P p2 04/13 Dr Slade Vital signs: BP 110/49, Pulse 62, resp 16, O2 sat 89% of 4L of oxygen H&P p2 04/13 Dr Slade Faint rales in left lower love H&P p2 04/13 Dr Slade Chest x-ray shows left lower lobe infiltrates GE consult p2 04/19 Oropharyngeal Dysphagia RISK FACTORS H&P p1 04/13 83-year-old male H&P p1 04/13 GERD H&P p3 04/13 Left lower lobe pneumonia H&P p3 04/13 Severe COPD TREATMENTS: Respiratory Panel 04/13 Oxygen of 4lpm via nasal cannula AUG 01 IV vancomycin AUG 01 IV Zosyn GE consult 04/19 Dawson Bourgeois (This form is maintained as a part of the permanent medical record) 2014 [employer]. All Rights Reserved [email or web address] [phone] MTDD
== END 2019-04-24 14:41 | DRG 193 ==
LOC: ERS 09:31 → 2NO 13:58 → T4-A 04-15 12:30
PROVIDERS: ADMIT Specialist; ATTEND Specialist
PROC: 02HV33Z Insertion of Infusion Device into Superior Vena Cava, Percutaneous Approach (ICD-10-PCS; principal; 2019-04-17)
PROC: B518ZZA Fluoroscopy of Superior Vena Cava, Guidance (ICD-10-PCS; 2019-04-17)
DX: J18.9 Pneumonia, unspecified organism (principal); J96.00 Acute respiratory failure, unspecified whether with hypoxia or hypercapnia; Z68.1 Body mass index [BMI] 19.9 or less, adult; R64 Cachexia; I25.10 Atherosclerotic heart disease of native coronary artery without angina pectoris; K21.9 Gastro-esophageal reflux disease without esophagitis; E03.9 Hypothyroidism, unspecified; E78.5 Hyperlipidemia, unspecified; F41.9 Anxiety disorder, unspecified; F32.9 Major depressive disorder, single episode, unspecified; R63.6 Underweight; J43.9 Emphysema, unspecified; R13.12 Dysphagia, oropharyngeal phase; Z95.1 Presence of aortocoronary bypass graft; Z79.01 Long term (current) use of anticoagulants; Z95.2 Presence of prosthetic heart valve; Z87.891 Personal history of nicotine dependence; Z79.899 Other long term (current) drug therapy; Z79.890 Hormone replacement therapy
CPT/HCPCS: 36415; 36569; 71045; 71046; 74230; 80048; 80053; 80061; 80202; 82274; 82607; 82728; 82746; 83550; 83605; 83690; 83880; 84443; 84484; 85025; 85610; 87040; 93005; 94640; 96365; 96367; 96375; C1751; J1956; J2543; J3370; J3490; J7050; J7620; J7626

== ENCOUNTER 2019-04-26 04:29 | Emergency (ER) | payer MEDICARE | END 2019-04-26 05:46 | disposition home or self-care (01) | LOC: ERS 04:29 | DX: T82.594A Other mechanical complication of infusion catheter, initial encounter (principal); E05.90 Thyrotoxicosis, unspecified without thyrotoxic crisis or storm ==

== ENCOUNTER 2019-04-26 20:39 | Emergency (ER) | payer MEDICARE | END 2019-04-27 01:05 | disposition home or self-care (01) | LOC: ERS 20:39 | DX: T82.838A Hemorrhage due to vascular prosthetic devices, implants and grafts, initial encounter (principal); E03.9 Hypothyroidism, unspecified; E78.5 Hyperlipidemia, unspecified; I25.10 Atherosclerotic heart disease of native coronary artery without angina pectoris; K21.9 Gastro-esophageal reflux disease without esophagitis; J44.9 Chronic obstructive pulmonary disease, unspecified; F32.9 Major depressive disorder, single episode, unspecified; N40.0 Benign prostatic hyperplasia without lower urinary tract symptoms | CPT/HCPCS: 99283 ==

== ENCOUNTER 2019-04-27 05:34 | Observation (INO) | payer MEDICARE ==
[2019-04-27 06:10] LABS: #Lymphocytes 1.6 thou/uL (1.20-3.40); #Monocytes 0.5 thou/uL (0.11-0.59); #Neutrophils 4.8 thou/uL (1.40-6.50); %Basophils 0.6 % (0.0-1.0); %Eosinophils 0.4 % (0.0-10.0); %Lymphocytes 23.6 % (21.0-51.0); %Monocytes 6.9 % (0.0-10.0); %Neutrophils 68.5 % (42.0-75.0); Hemoglobin 8.4 g/dL (14.0-18.0); Mean Corpuscular HGB CONC 32.8 g/dL (32.0-36.0); Mean Corpuscular Volume 97.7 fL (78.0-98.0); Mean Platelet Volume 6.4 fL (7.4-10.4); Platelet Count 245 thou/uL (130-400); RBC Distribution Width 15.8 % (11.5-14.5); Red Blood Cell (RBC) Count 2.62 mill/uL (4.70-6.10); White Blood Cell (WBC) Count 6.9 thou/uL (4.8-10.8)
[2019-04-27 06:25] LABS: ALT (SGPT) 8 U/L (8-55); AST (SGOT) 17 U/L (5-34); Albumin 2.8 g/dL (3.4-4.8); Alkaline Phosphatase 47 U/L (40-110); Anion Gap 10 mmol/L (10-20); BUN (Urea Nitrogen) 18 mg/dL (8.4-25.7); Bilirubin, Total 0.5 mg/dL (0.2-1.2); Calc. Creatinine Clearance 0 mL/min (70-130); Calcium 8.2 mg/dL (7.8-10.44); Carbon Dioxide 26 mmol/L (23-31); Chloride 104 mmol/L (98-107); Estimated GFR-MDRD 84; Globulin 3.1 g/dL (2.4-3.5); Glucose 110 mg/dL (83-110); Potassium 4.1 mmol/L (3.5-5.1); Protein, Total 5.9 g/dL (5.8-8.1); Sodium 136 mmol/L (136-145)
--- NOTE | 2019-04-27 08:07 | RAD ---
SINGLE VIEW OF THE CHEST: COMPARISON: 04/13/2019. HISTORY: Syncope. FINDINGS: A single view of the chest shows a normal-size cardiomediastinal silhouette. The patient is status p ost sternotomy. There is a PICC line with its tip in the superior vena cava. Increased interstitial lung markings are present. There is no evidence of consolidation, mass, or pleural effusion. IMPRESSION: Chronic interstitial lung disease without acute cardiopulmonary process. POS: C
[2019-04-27 08:53] VITALS: BMI 15.0
[2019-04-27] MEDS: Mometasone/Formoterol 120 PUFF INHALER INH SCH (18:54)
[2019-04-27] MEDS: Rosuvastatin 20 MG TAB PO SCH (20:26)
--- NOTE | 2019-04-28 00:01 | HP ---
CHIEF COMPLAINT OF OBSERVATION: Syncopal episode with some mild hypoxia. HISTORY OF PRESENT ILLNESS: The patient is an 83-year-old male, recently discharged from [facility] for left lower lobe pneumonia, aspiration syndrome, adult failure to thrive, COPD with hypoxia and severe deconditioning. He was sent from the hospital to rehab for physical therapy and reconditioning. While at the rehab, he was getting up from the commode when he had a syncopal episode. He was then noted to have low blood pressure and some hypoxia during that event. It is noted that he arrived in the emergency room dry, dehydrated. His blood pressure had improved. His IV fluids were administered and so with reperfusion, he has done quite well. All his initial labs in the ER are unremarkable and he is put into observation to correct his dehydration and then return him to rehab. PAST MEDICAL HISTORY: As mentioned above, recently hospitalized for left lower lobe pneumonia, noted to then have aspiration syndrome. He also has adult failure to thrive, hypothyroidism. He has severe presbycusis, coronary artery disease, COPD, GERD, hyperlipidemia, anxiety, BPH. Recently found to have GI bleed, family has decided not to pursue that. PAST SURGICAL HISTORY: Coronary artery disease with bypass graft x3 vessels in 2007. He has had a cardiac valve replaced as well. He most recently has been noted to have some BPH. PSYCHIATRIC HISTORY: He has had depression in the past, currently stable. SOCIAL HISTORY: No longer smoking. Lives in a long-term care facility. Denies alcohol use. ALLERGIES: HE HAS NO KNOWN DRUG ALLERGIES. MEDICATIONS: On this admission include: 1. Symbicort 160/4.5 two puffs b.i.d. 2. Folic acid 1 mg daily. 3. Ipratropium neb q.i.d. 4. Levothyroxine 100 mcg daily. 5. Pantoprazole 40 mg daily. 6. Rosuvastatin 20 mg at bedtime. 7. Sertraline 100 mg daily. 8. Spiriva 18 mcg daily. REVIEW OF SYSTEMS: Negative for 8 systems except for the admitting history and physical. PHYSICAL EXAMINATION: VITAL SIGNS: At the time of admission showed blood pressure 126/63, pulse 81, respirations 16, pain 0, 96% on 3 L. On arrival, he was 87% on room air and blood pressure 99/55. GENERAL: This is a severely cachectic male, alert, oriented, cooperative. Noted for temporal wasting and sunken eyes. HEENT: Arcus senilis bilaterally. Pupils are equal, round, and reactive to light. Extraocular muscles are intact. TMs and nares clear. Pharynx is dry. NECK: Supple. CHEST: With diminished breath sounds throughout. HEART: Regular rate and rhythm. ABDOMEN: Scaphoid. No organomegaly. : Deferred. EXTREMITIES: Without clubbing, cyanosis, or edema. Symmetric muscular wasting in upper and lower extremities are noted. SKIN: With poor turgor. No acute lesions. NEUROLOGIC: The patient is weak and barely able to walk. Sensory exam is grossly intact. Mental status is clear at baseline. LABORATORY DATA: I am unable to access lab at this moment. ASSESSMENT: 1. Syncopal episode-vasovagal, combined with mild dehydration. 2. Dehydration. 3. Adult failure to thrive. 4. Dysphagia with history of aspiration syndrome. 5. GI bleed-family has elected not to pursue this at this time. PLAN: Continue to hydrate the patient. Recheck his vital signs to make sure he does not remain orthostatic. The PICC line has been removed because it was a source of bleeding and is no longer necessary. We will serially re-evaluate him with potential transfer back to the rehab in the morning. Job ID: [id number] [facility]
[2019-04-28] MEDS: Levothyroxine Sodium 100 MCG TAB PO SCH (06:19)
[2019-04-28] MEDS: Mometasone/Formoterol 120 PUFF INHALER INH SCH ×2 (06:55→19:15)
[2019-04-28] MEDS: Folic Acid 1 MG TAB PO SCH (07:27)
--- NOTE | 2019-04-28 14:45 | PRG ---
DATE OF SERVICE: 04/28/2019 SUBJECTIVE: The patient is seen and examined at the bedside. He states that he feels good. He does not have much complaints to offer. OBJECTIVE: VITAL SIGNS: Blood pressure is 152/70, pulse is 89, respiratory rate is 16, temperature is 98.0, O2 saturation is 100% on 3 L by nasal cannula. HEENT: His head is atraumatic and normocephalic. Sclerae are nonicteric. Conjunctivae are palish. Oral mucosa is moist. NECK: Supple. LUNGS: Emphysematous. HEART: S1 and S2 are normal. ABDOMEN: Soft, nontender, and nondistended. EXTREMITIES: No clubbing, cyanosis, or edema. NEUROLOGIC: He follows my commands. He is hard of hearing. He is malnourished. He is emaciated, and I see some signs of generalized weakness in this man. LABORATORY DATA: None today. IMPRESSION: 1. Syncopal episode with evidence of orthostasis, improved with mild hydration. 2. Dehydration. 3. Adult failure to thrive. 4. Dysphagia with history of aspiration syndrome. PLAN: I met with the family, the patient's son, who agreed with assisted facility arrangement for PT and OT and to improve his functional and nutritional status. He finished his antibiotic treatment recently for left lower lobe pneumonia and aspirations syndrome. He is very deconditioned, and Case Management consult was in place. Job ID: [id number]
[2019-04-28] MEDS: Rosuvastatin 20 MG TAB PO SCH (20:37)
[2019-04-29] MEDS: Levothyroxine Sodium 100 MCG TAB PO SCH (06:29)
[2019-04-29] MEDS: Mometasone/Formoterol 120 PUFF INHALER INH SCH ×2 (07:49→19:21)
--- NOTE | 2019-04-29 09:04 | PRG ---
DATE OF SERVICE: 04/29/2019 SUBJECTIVE: The patient feels good. He does not have much complaints to offer. OBJECTIVE: VITAL SIGNS: Blood pressure is 107/55, pulse is 79, temperature 98.7, respiratory rate is 22, O2 saturation is 93% on room air. GENERAL: He looks emaciated and malnourished. HEENT: His eyes are PERRLA. Sclerae are nonicteric. Oral mucosa is moist. NECK: Supple. LUNGS: Emphysematous. No wheezing. No rales. HEART: S1 and S2, somewhat distant. No S3. No S4. ABDOMEN: Soft, nontender, and nondistended. EXTREMITIES: No clubbing, cyanosis, or edema. NEUROLOGIC: He follows my commands. He is hard of hearing. LABORATORY DATA: None today. IMPRESSION: 1. Syncopal episode with evidence of orthostasis, which is improved with mild hydration. 2. Dehydration, corrected. 3. Adult failure to thrive. 4. Dysphagia with history of aspiration syndrome. PLAN: The case was discussed with the patient's son, who agreed for assisted facility arrangement for PT and OT, and that is what we are waiting for. We will continue current regimen until he is approved. He can be transferred to the assisted facility for those treatments. Job ID: [id number]
[2019-04-29] MEDS: Folic Acid 1 MG TAB PO SCH (09:10)
[2019-04-29] MEDS: Rosuvastatin 20 MG TAB PO SCH (21:52)
[2019-04-30] MEDS: Levothyroxine Sodium 100 MCG TAB PO SCH (05:24)
[2019-04-30] MEDS: Mometasone/Formoterol 120 PUFF INHALER INH SCH ×2 (06:46→19:22)
[2019-04-30 08:50] LABS: Iron 42 ug/dL (65-175); Iron Binding Capacity, Total 273 mcg/dL (261-462)
[2019-04-30 09:17] LABS: Vitamin D, 25 Hydroxy 59.1 ng/ml (> 30.0)
[2019-04-30 09:22] LABS: Ferritin 176.81 ng/mL (22-322)
[2019-04-30] MEDS: Folic Acid 1 MG TAB PO SCH (09:36)
--- NOTE | 2019-04-30 11:36 | PRG ---
DATE OF SERVICE: 04/30/2019 SUBJECTIVE: The patient is seen and examined at the bedside. He does not have much complaints to offer. His appetite is good. OBJECTIVE: VITAL SIGNS: Blood pressure is 123/56, pulse is 88, temperature is 98.5, respirations 13, and O2 saturation 98% on nasal cannula. GENERAL: He looks emaciated and chronically malnourished, and his BMI is very low. HEENT: His eyes are PERRLA. Sclerae nonicteric. LUNGS: Emphysematous. No wheezing. Few rales bilateral at both bases. HEART: S1 and S2 normal. No S3. No S4. ABDOMEN: Soft, nontender, and nondistended. EXTREMITIES: No clubbing, cyanosis, or edema. NEUROLOGIC: He follows my commands. He moves his all 4 extremities. There are no any focal deficits. LABORATORY DATA: Labs showed iron of 42, TIBC 273 and percent saturation is 15 and ferritin 176.81. His vitamin B12 level is 477 and vitamin D is 59.1, folic acid is 18.2. IMPRESSION: 1. Syncopal episode with evidence of orthostasis, resolved. 2. Dehydration, corrected. 3. Adult failure to thrive. 4. Dysphagia with history of aspiration syndrome. PLAN: The patient will go to long term facility for generalized weakness and deconditioning and malnutrition. I am going to give him banana bag to improve his nutritional status. Job ID: [id number]
[2019-04-30] MEDS: Multivitamins, Adult 10 ML, Folic Acid 1 MG, Thiamine HCl 100 MG in Dextrose 5 %-0.45 %... IV SCH (14:32)
--- NOTE | 2019-04-30 17:36 | ULT ---
Venous duplex sonogram left upper extremity HISTORY: Pain and edema. FINDINGS: Good color and spectral Doppler flow within the internal jugular, axillary, and subclavian veins. Internal echoes with incomplete compressibility of the brachial vein. Diminished flow. The cephalic and basilic veins are patent. 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
[2019-04-30] MEDS: Rosuvastatin 20 MG TAB PO SCH (20:44)
[2019-04-30] MEDS ORDERED: Enoxaparin Sodium 60 MG/0.6 ML SYRINGE SC SCH (21:00)
[2019-05-01] MEDS: Levothyroxine Sodium 100 MCG TAB PO SCH (05:39)
[2019-05-01] MEDS: Mometasone/Formoterol 120 PUFF INHALER INH SCH ×2 (07:59→18:07)
[2019-05-01 08:14] LABS: #Lymphocytes 1.1 thou/uL (1.20-3.40); #Monocytes 0.4 thou/uL (0.11-0.59); #Neutrophils 3.2 thou/uL (1.40-6.50); %Basophils 0.9 % (0.0-1.0); %Eosinophils 0.5 % (0.0-10.0); %Lymphocytes 22.9 % (21.0-51.0); %Monocytes 8.4 % (0.0-10.0); %Neutrophils 67.3 % (42.0-75.0); Hemoglobin 8.2 g/dL (14.0-18.0); Mean Corpuscular HGB CONC 32.8 g/dL (32.0-36.0); Mean Corpuscular Hemoglobin 32.8 pg (27.0-31.0); Mean Platelet Volume 6.2 fL (7.4-10.4); Platelet Count 288 thou/uL (130-400); Red Blood Cell (RBC) Count 2.51 mill/uL (4.70-6.10); White Blood Cell (WBC) Count 4.8 thou/uL (4.8-10.8)
[2019-05-01 08:24] LABS: Anion Gap 10 mmol/L (10-20); BUN (Urea Nitrogen) 19 mg/dL (8.4-25.7); Calc. Creatinine Clearance 47 mL/min (70-130); Calcium 8.3 mg/dL (7.8-10.44); Carbon Dioxide 29 mmol/L (23-31); Chloride 102 mmol/L (98-107); Estimated GFR-MDRD Greater than 90; Glucose 90 mg/dL (83-110); Potassium 4.5 mmol/L (3.5-5.1); Sodium 136 mmol/L (136-145)
[2019-05-01] MEDS: Apixaban 2.5 MG TAB PO SCH ×2 (10:09→20:17)
[2019-05-01] MEDS: Folic Acid 1 MG TAB PO SCH (10:09)
[2019-05-01] MEDS: Multivitamins, Adult 10 ML, Folic Acid 1 MG, Thiamine HCl 100 MG in Dextrose 5 %-0.45 %... IV SCH (13:38)
[2019-05-01] MEDS: Rosuvastatin 20 MG TAB PO SCH (20:17)
[2019-05-02] MEDS: Levothyroxine Sodium 100 MCG TAB PO SCH (05:24)
[2019-05-02 05:36] LABS: #Lymphocytes 1.1 thou/uL (1.20-3.40); #Monocytes 0.5 thou/uL (0.11-0.59); #Neutrophils 3.5 thou/uL (1.40-6.50); %Basophils 0.5 % (0.0-1.0); %Eosinophils 0.8 % (0.0-10.0); %Lymphocytes 20.5 % (21.0-51.0); %Monocytes 9.5 % (0.0-10.0); %Neutrophils 68.7 % (42.0-75.0); Mean Corpuscular HGB CONC 33.5 g/dL (32.0-36.0); Mean Corpuscular Hemoglobin 33.3 pg (27.0-31.0); Mean Corpuscular Volume 99.3 fL (78.0-98.0); Mean Platelet Volume 6.4 fL (7.4-10.4); Platelet Count 278 thou/uL (130-400); White Blood Cell (WBC) Count 5.1 thou/uL (4.8-10.8)
[2019-05-02 06:01] LABS: Anion Gap 10 mmol/L (10-20); BUN (Urea Nitrogen) 18 mg/dL (8.4-25.7); Calc. Creatinine Clearance 51 mL/min (70-130); Calcium 8.3 mg/dL (7.8-10.44); Carbon Dioxide 27 mmol/L (23-31); Chloride 102 mmol/L (98-107); Estimated GFR-MDRD Greater than 90; Glucose 93 mg/dL (83-110); Potassium 4.4 mmol/L (3.5-5.1); Sodium 135 mmol/L (136-145)
[2019-05-02] MEDS: Mometasone/Formoterol 120 PUFF INHALER INH SCH (06:43)
[2019-05-02 08:12] VITALS: BP 116/57; TEMP 98.2
[2019-05-02] MEDS ORDERED: Aspirin 81 mg Enteric Coated Tablet PO SCH (09:00)
[2019-05-02] MEDS: Folic Acid 1 MG TAB PO SCH (09:48)
== END 2019-05-02 12:46 ==
LOC: ERS 05:34 → 2SW 08:38
PROVIDERS: ADMIT Emergency Medicine; ATTEND Emergency Medicine
DX: R55 Syncope and collapse (principal); E86.0 Dehydration; J44.9 Chronic obstructive pulmonary disease, unspecified; R62.7 Adult failure to thrive; E03.9 Hypothyroidism, unspecified; E78.5 Hyperlipidemia, unspecified; I25.10 Atherosclerotic heart disease of native coronary artery without angina pectoris; N40.0 Benign prostatic hyperplasia without lower urinary tract symptoms; K21.9 Gastro-esophageal reflux disease without esophagitis; F32.9 Major depressive disorder, single episode, unspecified; Z79.899 Other long term (current) drug therapy; Z87.891 Personal history of nicotine dependence; Z95.1 Presence of aortocoronary bypass graft; Z95.4 Presence of other heart-valve replacement
CPT/HCPCS: 71045; 80048 ×2; 80053; 82274; 82306; 82607; 82728; 82746; 83540; 83550; 83605; 84484; 85025 ×3; 93005; 93971; 94640 ×12; 94760; 96361; 96365; 96366 ×3; 96372; 97110; 97116 ×2; 97139; 99285; G0378 ×7; 36415; 96360; J1650; J3411; J7042; J7620

== ENCOUNTER 2019-10-19 14:42 | Emergency (ER) | payer MEDICARE ==
[2019-10-19] MEDS ORDERED: Fluorescein Opthalmic Strip ONE (15:17)
[2019-10-19 15:40] LABS: #Eosinphils 0.1 thou/uL (0.0-0.7); #Lymphocytes 2.4 thou/uL (1.20-3.40); #Monocytes 0.9 thou/uL (0.11-0.59); #Neutrophils 6.3 thou/uL (1.40-6.50); %Basophils 0.2 % (0.0-1.0); %Eosinophils 0.7 % (0.0-10.0); %Neutrophils 65.1 % (42.0-75.0); Hemoglobin 10.9 g/dL (14.0-18.0); Mean Corpuscular HGB CONC 31.4 g/dL (32.0-36.0); Mean Platelet Volume 7.7 fL (7.4-10.4); Platelet Count 289 thou/uL (130-400); RBC Distribution Width 13.4 % (11.5-14.5); Red Blood Cell (RBC) Count 3.29 mill/uL (4.70-6.10); White Blood Cell (WBC) Count 9.7 thou/uL (4.8-10.8)
[2019-10-19] MEDS ORDERED: Proparacaine 0.5% Opth 15 ML BOT ONE (15:56)
[2019-10-19 15:59] LABS: ALT (SGPT) 19 U/L (8-55); AST (SGOT) 23 U/L (5-34); Albumin 3.6 g/dL (3.4-4.8); Alkaline Phosphatase 59 U/L (40-110); Anion Gap 9 mmol/L (10-20); BUN (Urea Nitrogen) 18 mg/dL (8.4-25.7); Bilirubin, Total 0.3 mg/dL (0.2-1.2); Calc. Creatinine Clearance 0 mL/min (70-130); Calcium 9.3 mg/dL (7.8-10.44); Carbon Dioxide 30 mmol/L (23-31); Chloride 101 mmol/L (98-107); Estimated GFR-MDRD 78; Globulin 3.4 g/dL (2.4-3.5); Glucose 88 mg/dL (83-110); Potassium 5.2 mmol/L (3.5-5.1); Sodium 135 mmol/L (136-145)
--- NOTE | 2019-10-19 18:43 | CT ---
CT BRAIN WITHOUT CONTRAST: 10/19/19 HISTORY: Headache. Blurred vision in the right eye. COMPARISON: None. FINDINGS: No evidence of acute infarct, hemorrhage, midline shift or abnormal extra-axial fluid collections are seen. 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 The ventricular si ze is appropriate and the basilar cisterns patent. The bony calvarium is intact. There is mucosal dis ease in the paranasal sinuses. IMPRESSION: 1. No CT evidence of acute intracranial process. 2. Paranasal sinus disease. POS: NEAL
== END 2019-10-19 17:20 ==
LOC: ERS 14:42
DX: H53.8 Other visual disturbances (principal); E03.9 Hypothyroidism, unspecified; E78.5 Hyperlipidemia, unspecified; I25.10 Atherosclerotic heart disease of native coronary artery without angina pectoris; J44.9 Chronic obstructive pulmonary disease, unspecified; K21.9 Gastro-esophageal reflux disease without esophagitis; F32.9 Major depressive disorder, single episode, unspecified; Z79.82 Long term (current) use of aspirin; Z79.899 Other long term (current) drug therapy
CPT/HCPCS: 36415; 70450; 80053; 85025; 85652; 86140

== ENCOUNTER 2020-03-16 13:07 | Emergency (ER) | payer MEDICARE ==
[2020-03-16] MEDS ORDERED: Oxymetazoline HCl 0.05% (30 ML BOT) ONE (13:45)
[2020-03-16] MEDS ORDERED: Meclizine HCl 25 MG TAB ONE (13:45)
== END 2020-03-16 15:44 | disposition home or self-care (01) ==
LOC: ERS 13:07
DX: R04.0 Epistaxis (principal); E03.9 Hypothyroidism, unspecified; E78.5 Hyperlipidemia, unspecified; I25.10 Atherosclerotic heart disease of native coronary artery without angina pectoris; K21.9 Gastro-esophageal reflux disease without esophagitis; J44.9 Chronic obstructive pulmonary disease, unspecified; F32.9 Major depressive disorder, single episode, unspecified; N40.0 Benign prostatic hyperplasia without lower urinary tract symptoms; Z79.899 Other long term (current) drug therapy; Z79.51 Long term (current) use of inhaled steroids
CPT/HCPCS: 99283